=== PATIENT | female | born 1940 | race Caucasian/White ===

== ENCOUNTER 2021-02-02 12:14 | Emergency (ER) | payer MEDICARE, OTHER ==
[2021-02-02] MEDS ORDERED: ACETAMINOPHEN 325 MG TABLET (FP) PO ONE (12:19)
[2021-02-02 12:32] VITALS: BP 148/74; PULSE 56; TEMP 97.5; BMI 27.4
[2021-02-02] MEDS ORDERED: ACETAMINOPHEN 325 MG TABLET (FP) ONE (12:39)
[2021-02-02] MEDS ORDERED: LIDOCAINE HCL 1%, 10 MG/ML (50 mL VIAL) SQ ONE (13:00)
[2021-02-02] MEDS ORDERED: LIDOCAINE HCL 1%, 10 MG/ML (20ML VIAL) ONE (13:13)
== END 2021-02-02 14:47 | disposition home or self-care (01) ==
LOC: FER 12:14
PROC: 0PSHXZZ Reposition Right Radius, External Approach (ICD-10-PCS; principal; 2021-02-02)
PROC: 2W3CX1Z Immobilization of Right Lower Arm using Splint (ICD-10-PCS; 2021-02-02)
DX: S09.90XA Unspecified injury of head, initial encounter (principal); S52.532A Colles' fracture of left radius, initial encounter for closed fracture; W50.0XXA Accidental hit or strike by another person, initial encounter; W01.198A Fall on same level from slipping, tripping and stumbling with subsequent striking against other object, initial encounter
CPT/HCPCS: 70450-TC; 72125-TC; 73090-TC-LT-FY; 73110-TC-LT-FY; 73130-TC-LT-FY; 99285-25

== ENCOUNTER 2021-02-10 07:40 | Day surgery (SDC) | payer OTHER ==
[2021-02-10] MEDS ORDERED: PROPOFOL 20 ML ONE ×3 (08:29)
[2021-02-10] MEDS ORDERED: LIDOCAINE HCL 1%, 10 MG/ML (20ML VIAL) ONE (08:31)
[2021-02-10] MEDS ORDERED: BUPIVACAINE HCL 50 ML ONE (08:31)
[2021-02-10] MEDS ORDERED: DEXAMETHASONE SOD PHOSPHATE 10 MG/1 ML VIAL ONE (08:40)
[2021-02-10] MEDS ORDERED: MIDAZOLAM HCL 2 MG/2 ML SINGLE DOSE VIAL ONE (08:41)
[2021-02-10] MEDS ORDERED: ROPIVACAINE HCL 0.5% 30ML VIAL ONE (08:41)
[2021-02-10] MEDS ORDERED: oxyCODONE HCL 5 MG TABLET PO PRN (10:47)
[2021-02-10] MEDS ORDERED: ONDANSETRON 4 MG/2 ML VIAL IVPUSH PRN (10:47)
[2021-02-10] MEDS ORDERED: LACTATED RINGERS SOLUTION 1,000 ML IV SCH (11:00)
[2021-02-10 13:07] VITALS: BP 132/74; PULSE 58; TEMP 97.8
== END 2021-02-10 12:45 | disposition home or self-care (01) ==
LOC: FASU 07:40
PROVIDERS: ATTEND Orthopaedic Surgery
PROC: 0LN60ZZ Release Left Lower Arm and Wrist Tendon, Open Approach (ICD-10-PCS; 2021-02-10)
PROC: 0PSJ04Z Reposition Left Radius with Internal Fixation Device, Open Approach (ICD-10-PCS; principal; 2021-02-10 09:42)
DX: S52.572A Other intraarticular fracture of lower end of left radius, initial encounter for closed fracture (principal); X58.XXXA Exposure to other specified factors, initial encounter; Y93.9 Activity, unspecified; Y92.9 Unspecified place or not applicable
CPT/HCPCS: 94760; J1100

== ENCOUNTER 2024-03-28 09:58 | Observation (INO) | payer OTHER ==
[2024-03-28 11:52] LABS: INR 1.38 (0.83-1.09); PROTHROMBIN TIME (PATIENT) 15.6 SEC (9.7-13.0)
[2024-03-28 11:54] LABS: ACTIVATED PTT 30.4 SECONDS (25.2-36.5)
[2024-03-28 12:00] LABS: HEMATOCRIT 31.5 % (32.4-45.2); HEMOGLOBIN 10.6 G/dL (10.7-15.3); MCH 31.5 pg (25.7-33.7); MCHC 33.7 g/dl (32.0-36.0); MEAN CELL VOLUME 93.7 fl (80-96); MEAN PLT VOLUME 9.5 fl (7.5-11.1); PLATELET COUNT 170.3 10^3/uL (134-434); RBC 3.36 10^6/uL (3.60-5.2); RDW 15.5 % (11.6-15.6); WHITE BLOOD COUNT 13.3 10^3/uL (4.0-10.8)
[2024-03-28 12:05] LABS: ALBUMIN 3.4 g/dl (3.4-5.0); BILIRUBIN,TOTAL 0.8 mg/dl (0.2-1); CALCIUM 8.8 mg/dl (8.5-10.1); CREATININE 1.4 mg/dl (0.6-1.3); MAGNESIUM 1.7 mg/dL (1.8-2.4); PHOSPHOROUS 1.8 (2.5-4.9); TOT PROT 6.5 g/dl (6.4-8.2)
[2024-03-28 12:24] LABS: EPITHELIAL CELLS 0-5 /hpf
[2024-03-28 12:51] LABS: PLATELET ESTIMATE ADEQUATE
[2024-03-28] MEDS: MAGNESIUM SULFATE IN WATER 2 GM/50 ML IVPB IVPB ONE (14:00)
[2024-03-28] MEDS: LACTATED RINGERS SOLUTION 1000 ML INFUS.BAG IV ONE (14:00)
[2024-03-28] MEDS ORDERED: MAGNESIUM SULFATE IN WATER 2 GM/50 ML IVPB IVPB ONE (14:04)
[2024-03-28] MEDS ORDERED: cefTRIAXone SODIUM 1 GM VIAL ONE (14:12)
[2024-03-28] MEDS: KCL 10 MEQ IVPB 10 MEQ/100 ML INFUS.BAG IVPB SCH (14:30)
[2024-03-28] MEDS ORDERED: ACETAMINOPHEN 325 MG TABLET (FP) ONE (14:34)
[2024-03-28] MEDS: ACETAMINOPHEN 325 MG TABLET (FP) PO ONE (14:45)
[2024-03-28 17:19] VITALS: BMI 24.7
[2024-03-28 22:00] VITALS: RESP 18
[2024-03-28] MEDS: ROSUVASTATIN CA 10 MG TABLET PO SCH (22:08)
[2024-03-28] MEDS: HEPARIN NA (PORCINE) 5,000 UNITS/ML 1ML VIAL SQ SCH (22:08)
[2024-03-28] MEDS: MIRTAZAPINE 15 MG TABLET (FP) PO SCH (22:08)
[2024-03-28] MEDS: ACETAMINOPHEN 1000 MG/100 ML BAG IVPB ONE (22:29)
[2024-03-29 09:16] LABS: ALBUMIN 3.2 g/dl (3.4-5.0); BILIRUBIN,TOTAL 0.5 mg/dl (0.2-1); CREATININE 1.3 mg/dl (0.6-1.3); POTASSIUM 3.7 mmol/L (3.5-5.1); TOT PROT 6.5 g/dl (6.4-8.2)
[2024-03-29] MEDS: CEFTRIAXONE 1 GM in DEXTROSE 5%-WATER - 50 ML IVPB SCH (09:35)
[2024-03-29] MEDS: PANTOPRAZOLE 20 MG TABLET PO SCH (09:36)
[2024-03-29] MEDS: LOSARTAN POTASSIUM 50 MG TABLET PO SCH (09:36)
[2024-03-29] MEDS: CLOPIDOGREL BISULFATE 75 MG TABLET (FP) PO SCH (09:36)
[2024-03-29] MEDS: ACETAMINOPHEN 325 MG TABLET (FP) PO PRN (10:41)
[2024-03-29] MEDS: FLU VACCINE (FLULAVAL) PF 45 MCG/0.5 ML SYRINGE 2024-2025 IM ONE (10:42)
[2024-03-29 12:46] LABS: BASO % 0.4 % (0-2.0); EOS % 3.7 % (0-4.5); HEMATOCRIT 32.4 % (32.4-45.2); HEMOGLOBIN 10.7 GM/dL (10.7-15.3); LYMPH % 10.4 % (8-40); MCH 30.9 pg (25.7-33.7); MCHC 33.1 g/dl (32.0-36.0); MEAN CELL VOLUME 93.6 fl (80-96); MEAN PLT VOLUME 9.4 fl (7.5-11.1); MONO % 8.6 % (3.8-10.2); NEUT % 76.9 % (42.8-82.8); PLATELET COUNT 184 10^3/uL (134-434); RBC 3.46 M/mm3 (3.60-5.2); RDW 15.2 % (11.6-15.6); WHITE BLOOD COUNT 9.9 K/mm3 (4.0-10.0)
[2024-03-30 11:43] VITALS: BP 117/75; PULSE 81; TEMP 97.8
== END 2024-03-30 11:44 | disposition home or self-care (01) ==
LOC: FER 09:58 → FM/S 14:17 → INTOOBSV 14:17 → FM/S 14:54
PROC: 3E03329 Introduction of Other Anti-infective into Peripheral Vein, Percutaneous Approach (ICD-10-PCS; principal; 2024-03-28)
PROC: 3E0337Z Introduction of Electrolytic and Water Balance Substance into Peripheral Vein, Percutaneous Approach (ICD-10-PCS; 2024-03-28)
PROC: 3E033GC Introduction of Other Therapeutic Substance into Peripheral Vein, Percutaneous Approach (ICD-10-PCS; 2024-03-28)
PROC: 3E013GC Introduction of Other Therapeutic Substance into Subcutaneous Tissue, Percutaneous Approach (ICD-10-PCS; 2024-03-28)
DX: N39.0 Urinary tract infection, site not specified (principal); I10 Essential (primary) hypertension; E11.9 Type 2 diabetes mellitus without complications; E78.5 Hyperlipidemia, unspecified; F32.A Depression, unspecified; Z86.73 Personal history of transient ischemic attack (TIA), and cerebral infarction without residual deficits; W06.XXXA Fall from bed, initial encounter; Z91.81 History of falling; Y93.89 Activity, other specified; Y92.003 Bedroom of unspecified non-institutional (private) residence as the place of occurrence of the external cause
CPT/HCPCS: 0241U-QW; 36415; 70450-TC; 71046-TC-FY; 80053; 81003; 81015; 82962; 83735; 84100; 84443; 84484; 85025; 85027; 85610; 85730; 86850; 86900; 86901; 87040; 87086; 87186; 93005; 96365; 96367; 96375; 99285-25; G0378; J0131; J1644